=== PATIENT | female | born 1960 | race Caucasian/White ===

== ENCOUNTER → 2016-05-23 | Outpatient (CLI) | payer OTHER ==
[~2016-05-23] MED LIST: ASPI81TA81; AZEL1SPR2 EACH NARE; CHLOR50 PO; CLAR10CA3 PO; IBUP800T23 PO; MOME17I EACH NARE; NAPR500T; NAPR500T PO; PERC5TAB12 PO; PROZ20CA11 PO
--- NOTE | 2016-05-23 09:23 | RADRPT ---
EXAM DATE/TIME: 05/23/2016 07:40 [facility] COMPARISON: FLUOROSCOPY PORTABLE UP TO 1HR, January 14, 2016, 0:00. SPINE LUMBAR LATERAL ONLY, January 13 6, 10:26. INDICATIONS : Pain in left back, hip and leg for 4 months, post laminectomy MEDICAL HISTORY : None. SURGICAL HISTORY : laminectomy ENCOUNTER: Initial ACUITY: 3 months PAIN SCORE: 10/10 LOCATION: Left lumbar FINDINGS: There are five non-rib bearing vertebral bodies. Multilevel degenerative disc disease with loss of he ight and vacuum disc phenomenon at L3-4 and L4-5 and bone on bone articulation with subchondral scler osis at the lumbosacral junction. Vertebral body heights are maintained without fracture or significa nt listhesis. There are marginal spurs from L3 inferiorly. Atherosclerotic calcification of the regio nal vasculature with a rounded, 1 cm calcification projecting over the left renal shadow which projec ts posteriorly on the lateral and probably represents a renal calculus. Minimal grade 1 anterolisthesis of L3 on 4 in flexion which reduces in the neutral and extended posit ions. Vertebral body alignment is otherwise appropriate. CONCLUSION: 1. Multilevel degenerative disease from L3-4 inferiorly with bone on bone articulation at the lumbosa cral junction. 2. Minimal grade 1 anterolisthesis of L3 on 4 in flexion which reduces in the neutral and extended po sitions. No acute fracture. 3. Probable 1 cm left renal calculus. Ayaan Lock MD on May 23, 2016 at 9:14 Board Certified Radiologist. This report was verified electronically.
--- NOTE | 2016-05-23 16:21 | RADRPT ---
EXAM DATE/TIME: 05/23/2016 09:22 [facility] COMPARISON: No previous studies available for comparison. INDICATIONS : Radiculopathy. MEDICAL HISTORY : Hypertension. Steroid injections in lumbar spine. SURGICAL HISTORY : Carpal tunnel syndrome. Hysterectomy. Lumbar spine surgery, polys removed in throat. ENCOUNTER: Initial ACUITY: 1 week PAIN SCORE: 7/10 LOCATION: Bilateral lower back region. TECHNIQUE: Multiplanar multisequence MRI of the lumbar spine was performed without contrast. FINDINGS: Sagittal T1, T2 and inversion recovery images show multilevel degenerative disc disease with loss of disc height from L2-3 inferiorly. Most severe at L4-5 and L5-S1. Vertebral body heigh ts are maintained without evidence of fracture or listhesis. There are small Tarlov type cysts in the sacral region. Encroachment on the spinal canal is most significant at L3-4 where there is a diffus e disc bulge and posterior element hypertrophy but I do not see significant spinal stenosis at any lumbar level. Detailed axial images as follows: T12-L1: The thecal sac has a normal diameter. No evidence of disc bulge or protrusion. The neural foramina are patent bilaterally. L1-L2: The thecal sac has a normal diameter. No evidence of disc bulge or protrusion. The neural f oramina are patent bilaterally. L2-L3: Mild, diffuse disc bulge with some facet hypertrophy. Spinal canal and neural foramina are pa tent. L3-L4: Diffuse disc bulge with some facet hypertrophy. Some encroachment on the spinal canal but th e spinal canal and neural foramina remain adequate. L4-L5: Mild, diffuse disc bulge. Spinal canal and neural foramina are patent. L5-S1: The thecal sac has a normal diameter. No evidence of disc bulge or protrusion. The neural f oramina are patent bilaterally. CONCLUSION: 1. Multilevel degenerative disc disease, most severe at L4-5 and L5-S1 with marked loss of disc heigh t. 2. There is some encroachment on the spinal canal at L3-4 due to a diffuse disc bulge and posterior e lement hypertrophy. However, the spinal canal appears to be adequate throughout without ce ntral nerve root compromise. 3. In addition, the neural foramina are adequate bilaterally throughout the lumbar spine again, witho ut nerve root compromise. Ayaan Lock MD on May 23, 2016 at 15:56 Board Certified Radiologist. This report was verified electronically.
== END ==
LOC: HRAD 07:12
PROVIDERS: ATTEND Neurological Surgery
DX: M54.9 Dorsalgia, unspecified (principal); M54.16 Radiculopathy, lumbar region
CPT/HCPCS: 72114; 72148

== ENCOUNTER → 2016-08-02 | Day surgery (SDC) | payer OTHER ==
[~2016-08-02] VITALS: Ht 160 cm; Wt 70.0 kg
[~2016-08-02] MED LIST changes: +ACETAMINOPHEN 1000 MG/100 ML VIAL IV ONE; +BUPIVACAINE HCL PF 0.5% 30 ML VIAL ONE; +DEXAMETHASONE SOD PHOS 4 MG/ML VIAL ONE; +DEXT 5%-NACL 0.45% 1000 ML INJ 1,000 ML IV SCH; +FAMOTIDINE 20 MG/2 ML VIAL ONE; +LACTATED RINGER'S 1000 ML INJ 1,000 ML IV ONE; +LACTATED RINGER'S 1000 ML INJ 1,000 ML ONE; +MIDAZOLAM HCL 2 MG/2 ML VIAL ONE; -NAPR500T; +ONDANSETRON HCL 4 MG/2 ML VIAL IV PUSH ONE; +POVIDONE IODINE 10% OINT 1 PACKET TOPICAL ONE; +PROPOFOL 200 MG/20 ML AMP IV ONE; +SODIUM CHLORIDE 0.9% FLUSH 5 ML FLUSH IVF PRN; +SODIUM CHLORIDE 0.9% FLUSH 5 ML FLUSH IVF SCH; +ceFAZolin 2 GM PREMIX 50 ML ONE; +fentaNYL CITRATE 250 MCG/5 ML AMP ONE
[2016-08-02 07:42] VITALS: BP 121/81; PULSE 76; RESP 14; TEMP 97.8; O2SAT 97
--- NOTE | 2016-08-02 08:07 | HP.UPD ---
H&P Update Date: August 02, 2016 Note The Pre-Admit History and Physical Examination regarding the above named patient was reviewed (including, but not limited to, vital signs, medications, allergies, co-morbid conditions), and upon re-examination it is noted that: Indicated with "X" x - the patient's condition has not significantly changed since the last examination. [] - the patient's condition has changed since the last examination. Changes: Barbara George MD August 02, 2016 08:05
[2016-08-02 08:15] LABS: HEMATOCRIT 37.7 % (35.0-46.0); MEAN CELL VOLUME 85.4 FL (80.0-100.0); MEAN CORPUSCULAR HEMOGLOBIN 28.6 PG (27.0-34.0); MEAN CORPUSCULAR HGB CONC 33.5 % (32.0-36.0); PLATELET COUNT 320 TH/MM3 (150-450); RED BLOOD COUNT 4.41 MIL/MM3 (4.00-5.30); RED CELL DISTRIBUTION WIDTH 14.1 % (11.6-17.2); REVIEW FLAG FINAL; WHITE BLOOD COUNT 7.8 TH/MM3 (4.0-11.0)
[2016-08-02 13:11] VITALS: PULSE 108
--- NOTE | 2016-08-02 13:16 | HHI.PR ---
Immediate Post Op Note Procedure Date: August 02, 2016 Pre Op Diagnosis: (1) Primary localized osteoarthrosis, hand (2) Sesamoiditis Post Op Diagnosis: (1) Primary localized osteoarthrosis, hand (2) Sesamoiditis Surgeon: Barbara George Project Financial Analyst(s): None Procedure: 1. 4 corner fusion of the left wrist with internal fixation and autograft. 2. Excision of the left carpal scaphoid. 3. Radial sesamoidectomy MP joint of the left thumb. Anesthesia: General Drains: None Tourniquet time (min at mmHg) 127 minutes at 220 mmHg Patient to: PACU Patient Condition: Good Implant/Devices: SEE IMPLANT LOG (if applicable) Date/Time of Procedure: SEE SURGICAL CARE RECORD Barbara George MD August 02, 2016 13:16
[2016-08-02 14:00] VITALS: BP 120/77; PULSE 90; RESP 14; TEMP 98.1; O2SAT 94
--- NOTE | 2016-08-02 23:30 | MP ---
cc: MARIA ISABEL SALAZAR M.D. DATE OF SURGERY: 08/02/2016 PREOPERATIVE DIAGNOSIS: 1. 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 2. Radial sesamoiditis of the radial sesamoid left thumb MP joint. POSTOPERATIVE DIAGNOSIS: 1. 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 2. Radial sesamoiditis of the radial sesamoid left thumb MP joint. PROCEDURE: 1. Four corner fusion of the left wrist with internal fixation and autograft. 2. Excision of the left carpal scaphoid. 3. Radial sesamoidectomy of the MP joint of the left thumb. ANESTHESIA General SURGEON Dr. 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 In addition the patient had sesamoiditis of the MP joint of the left thumb, radial side. FINDINGS: At the completion of the procedure, the four bones of the wrist, the capitate, lunate hamate and triquetrum were fused with a circular radial lucent plate and four screws at autograft. The scaphoid was excised and the sesamoid was excised. TOURNIQUET TIME: 127 minutes. DESCRIPTION OF PROCEDURE: The patient was seen preoperatively where the sites and sides were identified and marked. The patient was then taken to the operating room, placed in supine position. Her identify was checked against the arm and the consent form, site and side confirmed. Time out called prior to beginning the procedure. The left upper extremity was prepped with Hibiclens and draped in the usual sterile fashion. The area to be incised was outlined with a marking pen as an incision over the scaphoid and the perilunate area. In addition, a transverse incision was designed over the radial sesamoid at the MP joint of the thumb. The left upper extremity was then exsanguinated and the tourniquet inflated to 220 mmHg. Bupivacaine 0.5% plain was used to make a median nerve block as well as a dorsal block at the dorsal sensory nerve and the radial nerves. Once the blocks were in place, a 15 blade was used to make the incision dorsally down through skin down to the subcutaneous tissue. Using sharp and blunt dissection the tendons of the dorsal wrist were identified and retracted. The extensor pollicis longus and the extensor carpi radialis longus were retracted exposing the scaphoid. The scaphoid was then removed by cutting the ligamentous attachments and removing it in piecemeal. Bone graft was harvested from the carpal scaphoid. Attention was then turned to the perilunate area where the capsule was opened and reflected, ligamentous attachments were divided and the cortical cancellus bone between the capitate lunate, hamate and triquetrum were denuded with a rongeur and curette. Once all surfaces were denuded the lunate was reduced in relationship to the capitate and the wrist and held in place with a K-wire which was placed through the capitate into the lunate. The position was confirmed on the mini C-arm. A reamer was then used with the 14 millimeter plate. The reamer was placed in position which would ensure good seating of the plate without any encumbrance on the adjacent bones including the radius. Once the area was reamed the joints again were checked to make sure that there is adequate denuding. Bone graft, which had been harvested from the carpal scaphoid, was then placed into the areas which had been denuded of the cortical cancellus bone and packed in. The plate was then placed and held in place with two K-wires and the plate was then affixed to the adjacent bones using standard technique of drilling the hole, checking the depth, placing the screws. The depths of the screws were checked with the mini C-arm. Once there was adequate position they were tightened according to the technique. There was excellent range of motion without any grinding. The x-ray confirmed the presence of the screws within the bone. The capsule was then approximated after irrigation, and the skin was closed with a running subcuticular 4-0 Prolene. Additional anesthetic was injected just prior to closure. Attention was then turned to the thumb where a new 15 blade was used to make a transverse incision over the sesamoid. Incision was made down through the skin, down through the subcutaneous tissue. Using sharp and blunt dissection the area of the A1 mauricio was identified. The tendon sheath was opened and the flexor tendon to the thumb was reflected. The ligamentous attachments to the sesamoid were divided and the sesamoid was removed. There was evidence of wearing away of the cartilage on the hand of the metacarpal. Once sesamoid was out stability was checked. It was adequate and the wound was irrigated and closed with a running 5-0 nylon suture after injecting additional bupivacaine. Once it was injected, the wound was closed. The tourniquet was released after 127 minutes of tourniquet time. Pressure was applied to all operated areas and after about 7 minutes there was no evidence of any oozing, a dressing was applied using povidone-iodine ointment, Adaptic, Telfa to the thumb, Steri-Strips were placed on the wrist wound along with the povidone-iodine ointment, the Adaptic and Telfa. Fluffy gauze were was then used to complete the dressing along with the hand wrap and a thumb spica splint. The patient was then taken from the operating room to the recovery room in satisfactory condition having tolerated the procedure well. Postoperative instructions include keeping arm elevated, keeping it clean and dry and returning next week for follow up. The patient was given a prescription for Percocet and ibuprofen 800. Maria Isabel Salazar MD Teresa/CAROLINA /1:20 PM /11:18 PM
== END | disposition home or self-care (01) ==
LOC: PHSDC 06:46
PROVIDERS: ATTEND Specialist
DX: M19.032 Primary osteoarthritis, left wrist (principal); M25.842 Other specified joint disorders, left hand
CPT/HCPCS: 01830; 25810; 26185; 36415; 85027; 88305; 88311; J0131; J0690; J1100; J2250; J3010; J7120; 76000; 88302; 88304; C1713; J2405

== ENCOUNTER → 2016-08-18 | Outpatient (CLI) | payer OTHER ==
[~2016-08-18] MED LIST changes: -ACETAMINOPHEN 1000 MG/100 ML VIAL IV ONE; -BUPIVACAINE HCL PF 0.5% 30 ML VIAL ONE; -DEXAMETHASONE SOD PHOS 4 MG/ML VIAL ONE; -DEXT 5%-NACL 0.45% 1000 ML INJ 1,000 ML IV SCH; -FAMOTIDINE 20 MG/2 ML VIAL ONE; -LACTATED RINGER'S 1000 ML INJ 1,000 ML IV ONE; -LACTATED RINGER'S 1000 ML INJ 1,000 ML ONE; -MIDAZOLAM HCL 2 MG/2 ML VIAL ONE; -ONDANSETRON HCL 4 MG/2 ML VIAL IV PUSH ONE; -PERC5TAB12 PO; -POVIDONE IODINE 10% OINT 1 PACKET TOPICAL ONE; -PROPOFOL 200 MG/20 ML AMP IV ONE; -SODIUM CHLORIDE 0.9% FLUSH 5 ML FLUSH IVF PRN; -SODIUM CHLORIDE 0.9% FLUSH 5 ML FLUSH IVF SCH; -ceFAZolin 2 GM PREMIX 50 ML ONE; -fentaNYL CITRATE 250 MCG/5 ML AMP ONE
--- NOTE | 2016-08-18 12:07 | RADRPT ---
EXAM DATE/TIME: 08/18/2016 10:09 [facility] COMPARISON: SPINE LUMBAR COMPLETE W/FLEX&EXT, May 23, 2016, 7:40. INDICATIONS : Left hip pain, since back surgery 6 months ago. MEDICAL HISTORY : None. SURGICAL HISTORY : lumbar surgery ENCOUNTER: Initial ACUITY: 4 - 6 months PAIN SCORE: 7/10 LOCATION: Left hip FINDINGS: The femoral head is well situated within the acetabular fossa. The alignment is good. No acute fractu res seen. CONCLUSION: 1. No acute bony abnormality is identified. Raymon Shirley MD on August 18, 2016 at 12:03 Board Certified Radiologist. This report was verified electronically.
== END ==
LOC: HRAD 09:58
PROVIDERS: ATTEND Neurological Surgery
DX: M25.552 Pain in left hip (principal)
CPT/HCPCS: 73502

== ENCOUNTER → 2016-08-23 | Outpatient (CLI) | payer OTHER ==
[~2016-08-23] MED LIST changes: -MOME17I EACH NARE
--- NOTE | 2016-08-23 18:23 | RADRPT ---
EXAM DATE/TIME: 08/23/2016 16:36 [facility] COMPARISON: No previous studies available for comparison. INDICATIONS : Neck pain. Numbness upper extremities. MEDICAL HISTORY : Hypertension. SURGICAL HISTORY : Fusion, lumbar. Hysterectomy. ENCOUNTER: Initial ACUITY: 2 weeks PAIN SCORE: 3/10 LOCATION: Neck TECHNIQUE: Multiplanar, multisequence MRI examination of the cervical spine was performed. FINDINGS: VERTEBRAE: Normal vertebral body height. Homogeneous marrow signal. ALIGNMENT: There is minimal posterior subluxation of C5 on C6 and C6 on C7 in the order of 1-2 mm and anterior s ubluxation of C7 on T1 in the order of 2 mm. CORD: Normal configuration and signal. POST FOSSA: The cerebellar tonsils are normal in position. C2-C3: The thecal sac has a normal configuration. There is no evidence of disc herniation or spinal canal s tenosis. The neural foramina are patent bilaterally. C3-C4: There is mild facet hypertrophy. Thecal sac has a normal configuration. There is no evidence of dis c herniation or spinal canal stenosis. The neural foramina are patent bilaterally. C4-C5: There is mild facet hypertrophy. The thecal sac has a normal configuration. There is no evidence of disc herniation or spinal canal stenosis. The neural foramina are patent bilaterally. C5-C6: This demonstrates decreased height. There is mild diffuse disc bulge. There is a mild to moderate i mpression on the thecal sac. There is a thin layer of CSF seen around the cord. There is uncoverteb ral hypertrophy and facet hypertrophy. There is narrowing at the neural foramina bilaterally being w orse on the right. C6-C7: This demonstrates disc space height. There is mild diffuse disc bulge. It is asymmetric being worse on the right. This causes a moderate impression on the thecal sac with a very thin layer of CSF see n around the cord. There is uncovertebral hypertrophy. There is some narrowing of the neural forami na being worse on the right. C7-T1: Again noted is the anterior subluxation of C7 on T1. A significant impression on the thecal sac is n ot seen. The neural foramina are normal. There is facet hypertrophy. CONCLUSION: 1. Diffuse disc bulges at the C5-C6 and C6-C7 levels with mild to moderate narrowing of the thecal s ac at the C5-C6 level and moderate narrowing at the C6-C7 level. 2. Mild posterior subluxation of C5 on C6 and C6 on C7 and anterior subluxation of C7 on T1 secondar y to degenerative facet hypertrophy. Lawrence Marmolejo MD on August 23, 2016 at 17:28 Board Certified Radiologist. This report was verified electronically.
== END ==
LOC: HRAD 15:47
PROVIDERS: ATTEND Neurological Surgery
DX: G95.20 Unspecified cord compression (principal)
CPT/HCPCS: 72141

== ENCOUNTER → 2016-09-20 | Outpatient (CLI) | payer OTHER ==
[~2016-09-20] MED LIST changes: -AZEL1SPR2 EACH NARE; -IBUP800T23 PO; +IOHEXOL 350 MG/ML 10 ML VIAL (for RAD DIAG) IV ONE; +MOME17I EACH NARE
--- NOTE | 2016-09-20 18:02 | RADRPT ---
EXAM DATE/TIME: 09/20/2016 12:41 [facility] COMPARISON: No previous studies available for comparison. INDICATIONS : Left renal artery aneurysm. IV CONTRAST: 90 cc Omnipaque 350 (iohexol) IV ORAL CONTRAST: No oral contrast ingested. RADIATION DOSE: 9.69 CTDIvol (mGy) MEDICAL HISTORY : Hypertension. SURGICAL HISTORY : None. ENCOUNTER: Initial ACUITY: 1 day PAIN SCALE: 0/10 LOCATION: abdomen TECHNIQUE: Volumetric scanning was performed using a multi-row detector CT scanner. The data was post processed with a variety of visualization algorithms including full volume maximum intensity projection, multi -planar sliding thin slab reformation, curved planar reformation, and surface rendering techniques. Using automated exposure control and adjustment of the mA and/or kV according to patient size, radiat ion dose was kept as low as reasonably achievable to obtain optimal diagnostic quality images. DICOM format image data is available electronically for review and comparison. FINDINGS: ABDOMINAL AORTA: Minimal atherosclerotic calcifications involving the infrarenal abdominal aorta without significant f low-limiting stenosis or aneurysm. VISCERAL ARTERIES: Celiac artery is patent. SMA is patent. RAFI is patent. The there is a single widely patent right shae l artery. There are 2 left renal arteries with a small accessory renal artery supplying the inferior pole. 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 The branch vessels arising from this aneurysm supplying the superior and mid renal po les. No asha-aneurysm stranding or hematoma. RIGHT PELVIS: The right common iliac, internal iliac and external iliac vessels are patent without luminal irregula rity. LEFT PELVIS: The left common iliac, internal iliac and external iliac vessels are patent and without luminal irreg ularity. GENERAL FINDINGS: Visualized lung bases are clear. 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 Subcentimeter hypodense lesion in the dome of the liver is too small to fully characterize. The chacha er is otherwise grossly unremarkable. Spleen, adrenal glands, bowel, and pancreas are within normal l imits. Kidneys demonstrate symmetrical enhancement without evidence of hydronephrosis or radiopaque r enal calculi. Bowel appear grossly unremarkable without evidence for obstruction. There is no signifi cant free fluid or drainable fluid collection. Bladder is mildly distended and appears unremarkable. Uterus is not visualized and likely surgically absent. No abnormal for a lytic or blastic bony lesions. CONCLUSION: 1. Two left renal arteries with a small accessory renal artery supplying the inferior pole. 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 Generally, visceral artery aneurysms a re not treated below 2 cm unless there are exceptional circumstances that would predispose the patien t to repetitive trauma, significant high flow state, or there is rapid enlargement. This aneurysm wou ld be exceptionally challenging to treat endovascularly. Surveillance imaging may be performed in 6-1 2 months to document stability. Tanner De La O MD on September 20, 2016 at 17:49 Board Certified Radiologist. This report was verified electronically.
== END ==
LOC: HRAD 11:49
PROVIDERS: ATTEND Thoracic Surgery (Cardiothoracic Vascular Surgery)
DX: I70.1 Atherosclerosis of renal artery (principal)
CPT/HCPCS: 74174; Q9967